=== PATIENT | female | born 1970 | race Caucasian/White ===

== ENCOUNTER 2018-12-22 17:54 | Emergency (ER) | payer BC ==
[~2018-12-22 17:54] MED LIST: Iopamidol 370 76% 125 ML VIAL FS ONE
[2018-12-22 18:23] LABS: #Basophils 0.1 thou/uL (0.0-0.2); #Lymphocytes 3.3 thou/uL (1.20-3.40); #Monocytes 1.1 thou/uL (0.11-0.59); #Neutrophils 7.6 thou/uL (1.40-6.50); %Basophils 0.7 % (0.0-1.0); %Eosinophils 0.3 % (0.0-10.0); %Lymphocytes 27.5 % (21.0-51.0); %Monocytes 8.6 % (0.0-10.0); %Neutrophils 62.9 % (42.0-75.0); Hemoglobin 14.3 g/dL (12.0-16.0); Mean Corpuscular HGB CONC 34.1 g/dL (32.0-36.0); Mean Corpuscular Hemoglobin 29.4 pg (27.0-31.0); Mean Corpuscular Volume 86.3 fL (78.0-98.0); Mean Platelet Volume 10.1 fL (7.4-10.4); Platelet Count 405 thou/uL (130-400); RBC Distribution Width 12.6 % (11.5-14.5); Red Blood Cell (RBC) Count 4.85 mill/uL (4.20-5.40); White Blood Cell (WBC) Count 12.1 thou/uL (4.8-10.8)
[2018-12-22] MEDS ORDERED: Aspirin Chewable 81 MG TAB ONE (18:26)
[2018-12-22 18:42] LABS: ALT (SGPT) 13 U/L (8-55); AST (SGOT) 12 U/L (5-34); Albumin 4.2 g/dL (3.5-5.0); Alkaline Phosphatase 73 U/L (40-150); Anion Gap 15 mmol/L (10-20); BUN (Urea Nitrogen) 25 mg/dL (7.0-18.7); Bilirubin, Total 0.4 mg/dL (0.2-1.2); Calc. Creatinine Clearance 0 mL/min (70-130); Carbon Dioxide 26 mmol/L (22-29); Chloride 102 mmol/L (98-107); Estimated GFR-MDRD 50; Globulin 3.3 g/dL (2.4-3.5); Glucose 100 mg/dL (70-105); Potassium 3.9 mmol/L (3.5-5.1); Protein, Total 7.5 g/dL (6.0-8.3); Sodium 139 mmol/L (136-145)
--- NOTE | 2018-12-22 19:00 | RAD ---
PORTABLE CHEST: 12/22/2018 PROVIDED CLINICAL HISTORY: Chest pain. COMPARISON: 02/06/2018 FINDINGS: The cardiac and mediastinal silhouette is within normal limits. The lungs appear clear. No pleural fluid or pneumothorax apparent. IMPRESSION: No evidence for an acute cardiopulmonary process. POS: PRASANNA
--- NOTE | 2018-12-22 19:57 | CT ---
CTA Angio Chest W WO Con HISTORY: Chest pain. Elevated d-dimer. History of knee arthroscopy 4 days ago. COMPARISON: None. FINDINGS: The lungs are clear of any infiltrative process there is evidence to suggest some air blayne ing. No pleural effusions or pulmonary nodules. No significant mediastinal or hilar lymphadenopathy. There is good central pulmonary artery opacification, less optimal peripheral opacification is seen. There are some tiny questionable subsegmental emboli seen one area on axial image 54 in the right lower lobe and axial image 59 within the right lower lobe is seen. I cannot exclude these as tiny pul monary emboli. Incidental note is made of hypodensities within the liver most compatible with cysts. IMPRESSION: Less than optimal peripheral of opacification also was some motion within the lung bases making assessment difficult. There is an equivocal finding of some tiny subsegmental right lower lobe pulmonary emboli present. Given the equivocal findings within the right lower lobe it may be hel pful to perform lower extremity ultrasound examination.
[2018-12-22] MEDS ORDERED: Enoxaparin Sodium 80 MG/0.8 ML SYRINGE ONE (20:05)
[2018-12-22] MEDS ORDERED: Sodium Chloride 0.9% 1,000 ML ONE (20:10)
== END 2018-12-22 20:49 | disposition short-term general hospital (02) ==
LOC: MADERS 17:54
DX: I26.99 Other pulmonary embolism without acute cor pulmonale (principal)
CPT/HCPCS: 71045; 71275; 80053; 84484; 85025; 85379; 93005; 94760; 96360; 96372; J1650; J7050; Q9967